=== PATIENT | male | born 1955 | race Caucasian/White ===

== ENCOUNTER 2016-06-06 09:35 | Day surgery (SDC) | payer OTHER ==
[~2016-06-06] VITALS: Ht 165.1 cm; Wt 65.0 kg
[~2016-06-06 09:35] MED LIST: CARAS PO; CHOL20003 PO; FOLI-49 PO; METF500T4 PO; METO-448 PO; PANT40TA4 PO; RANI150T5 PO
[2016-06-06] MEDS ORDERED: zofran (11:25)
[2016-06-06 11:26] VITALS: Ht 165.1 cm; Wt 65.0 kg
[2016-06-06] MEDS ORDERED: LIDOCAINE 4% SOLUTION 50 ML BTL ONE (11:37)
[2016-06-06 11:39] VITALS: BP 174/93; PULSE 91; RESP 18
[2016-06-06] MEDS ORDERED: FENTAnyl 50 MCG/ML VIAL ONE (12:00)
[2016-06-06] MEDS ORDERED: MIDAZOLAM 1 MG/ML 2 ML INJ ONE ×2 (12:00)
--- NOTE | 2016-06-06 12:08 | GILP ---
DATE OF PROCEDURE: 06/06/2016 PROCEDURE: Esophagogastroduodenoscopy with biopsy. INDICATION: A 61-year-old male undergoing this procedure for persistent hiccup despite given PPI an d Carafate. The purpose is to evaluate upper GI tract to find out the cause of his hiccup. INFORMED CONSENT: The risks of the procedure, related and unrelated complications, anesthetic risks , alternatives discussed. Informed consent was obtained. DESCRIPTION OF PROCEDURE: The patient was brought to the GI lab, sedated with Versed 4 mg, fentanyl 75 mg p.o. After optimal sedation, scope was passed with much ease into the esophagus which was gr ossly within normal limits. Z-line was at 38 cm. Stomach mucosa revealed gastritis of moderate deg ree. Multiple biopsies obtained. Duodenum, first and second part including ampulla appeared normal . Retroversion also in the stomach was normal. Scope was straightened out and removed with good pa tient tolerance. IMPRESSION: 1. Gastritis. 2. Normal esophagus. 3. Normal Z-line at 38 cm. 4. Normal duodenum and ampulla. PLAN: Review the histopathology. If negative, then we will have to find out if there is some other cause for his hiccup. Dictated By: TYLER MCDUFFIE/SIRI Conf#: [id number] DID#: [id number] CC: TYLER MENDOZA MD; VALERIE SCHREIBER;*[facility]*
[2016-06-06 12:26] VITALS: BP 146/90; PULSE 82; RESP 19
== END 2016-06-06 13:03 | disposition home or self-care (01) ==
LOC: GIL 09:35
PROVIDERS: ATTEND Internal Medicine Gastroenterology
DX: K29.50 Unspecified chronic gastritis without bleeding (principal); I10 Essential (primary) hypertension
CPT/HCPCS: 88305; 88312; J2250; J3010